=== PATIENT | female | born 1955 | race Caucasian/White ===

== ENCOUNTER → 2016-12-17 | Outpatient (CLI) | payer BC, MEDICARE ==
[~2016-12-17] MED LIST: ATEN50TA PO; CYCL1TAB29 PO; DIAZ5 PO; FLEC1.3D5 T-DERMAL; HYDR50TA3 PO; LEVO1CAP PO; LORA1TAB12 PO; META1TAB19 PO; OXYM10TA5 PO; OXYMTAB2 PO; SUVO1TAB4 PO; ZETI10TA5 PO
[2016-12-17 11:51] LABS: BACTERIA, URINE MANY /hpf; BLOOD, URINE NEG (NEG); GLUCOSE,URINE NEG (NEG); KETONE, URINE NEG (NEG); NITRITE,URINE NEG (NEG); SQUAMOUS EPITHELIAL CELL URINE 2 /hpf (0-5); URINE COLOR YELLOW (YELLW/STRAW)
[2016-12-17 12:11] LABS: MEAN CELL VOLUME 96.6 FL (80.0-100.0); MEAN CORPUSCULAR HEMOGLOBIN 34.1 PG (27.0-34.0); MEAN CORPUSCULAR HGB CONC 35.3 % (32.0-36.0); PLATELET COUNT 180 TH/MM3 (150-450); RED BLOOD COUNT 4.35 MIL/MM3 (4.00-5.30); RED CELL DISTRIBUTION WIDTH 12.8 % (11.6-17.2); REVIEW FLAG FINAL; WHITE BLOOD COUNT 5.8 TH/MM3 (4.0-11.0)
--- NOTE | 2016-12-17 12:24 | RADRPT ---
EXAM DATE/TIME: 12/17/2016 12:12 [place] COMPARISON: No previous studies available for comparison. INDICATIONS : [facility] for pneumonia, pneumothorax or communicable disease. Pre op D&C. MEDICAL HISTORY : Hypertension. SURGICAL HISTORY : None. ENCOUNTER: Initial ACUITY: 1 day PAIN SCORE: 0/10 LOCATION: Bilateral chest FINDINGS: PA and lateral views of the chest demonstrate the lungs to be symmetrically aerated without evidence of mass, infiltrate or effusion. The cardiomediastinal contours are unremarkable. Osseous structure s are intact with mid cervical anterior cerebrals of fusion plate in place as well as upper thoracic probably T1-T2 anterior fusion. Right-sided marginal hypertrophic spurring in the lower thoracic spin e.. CONCLUSION: No acute disease. Ed Rico MD on December 17, 2016 at 12:22 Board Certified Radiologist. This report was verified electronically.
[2016-12-17 12:32] LABS: ANION GAP 7 MEQ/L (5-15); AST (GOT) 29 U/L (15-37); BICARBONATE 29.5 MEQ/L (21.0-32.0); BLOOD UREA NITROGEN 16 MG/DL (7-18); CHLORIDE 101 MEQ/L (98-107); GLOMERULAR FILTRATION RATE 70 ML/MIN (>89); GLUCOSE,FASTING 109 MG/DL (74-99); POTASSIUM 3.5 MEQ/L (3.5-5.1); SODIUM (NA) 137 MEQ/L (136-145)
[2016-12-17 12:33] LABS: ALT (GPT) 29 U/L (10-53)
[2016-12-17 12:35] LABS: ALKALINE PHOSPHATASE 99 U/L (45-117); TOTAL BILIRUBIN ADULT 0.5 MG/DL (0.2-1.0)
--- NOTE | 2016-12-17 15:56 | EKG ---
Date Performed: 12/17/2016 Time Performed: 11:03:14 PTAGE: 61 years EKG: Sinus rhythm POSSIBLE LEFT ATRIAL ENLARGEMENT LOW QRS VOLTAGE IN PRECORDIAL LEADS POSSIBLE INFERIOR MYOCARDIAL IN FARCTION, PROBABLY OLD BORDERLINE ECG NO PREVIOUS TRACING DOCTOR: Landon Wilde Interpretating Date/Time 12/17/2016 15:54:13
== END ==
LOC: CPRE 10:36
PROVIDERS: ATTEND Obstetrics & Gynecology
DX: Z01.812 Encounter for preprocedural laboratory examination (principal); Z01.810 Encounter for preprocedural cardiovascular examination; Z01.811 Encounter for preprocedural respiratory examination; R93.8 Abnormal findings on diagnostic imaging of other specified body structures
CPT/HCPCS: 36415; 71020; 80053; 81001; 85027; 93005

== ENCOUNTER → 2016-12-19 | Day surgery (SDC) | payer BC, MEDICARE ==
[~2016-12-19] VITALS: Ht 160 cm; Wt 80.2 kg
[~2016-12-19] MED LIST changes: +*morphine SULFATE 8 MG/ML PERIprocedure ONLY ONE; +ACETAMINOPHEN 1000 MG/100 ML 100 ML IV ONE; +ACETAMINOPHEN/HYDROcodone 325 MG/5 MG TAB PO PRN; +CHLORHEXIDINE GLUCONATE 2 % 1 PACK (2 CLOTHS) TOPICAL PRN; +DEXAMETHASONE SOD PHOS 4 MG/ML VIAL IV ONE; +DO NOT ADM ANY ANTICOAGULANT DRUGS PRN; +INSULIN HUMAN REGULAR 1,000 UNITS/10 ML VIAL SQ PRN; +KETOROLAC TROMETHAMINE 30 MG/ML (IVP) VIAL IV PUSH ONE; +LACTATED RINGER'S 1000 ML IV PRN; +LIDOCAINE HCL 1% PF 5 ML AMPULE OTHER ONE; +METOPROLOL TARTRATE 25 MG TAB PO PRN; +MIDAZOLAM HCL 2 MG/2 ML VIAL IV ONE; +ONDANSETRON HCL 4 MG/2 ML VIAL IV PUSH ONE; +ONDANSETRON HCL 4 MG/2 ML VIAL IV PUSH PRN; +PHENYLEPH/NS 1000 MCG/10 ML SYR IV ONE; +POVIDONE IODINE 5% (ANTISEPSIS KIT) 4 APPLICATIONS EACH NARE PRN; +PROPOFOL 200 MG/20 ML AMP IV ONE; +SODIUM CHLORID 0.9% 500 ML IV PRN; +ceFAZolin 1,000 MG/NS 100 ML IV ONE; +ceFAZolin INJ 1,000 MG VIAL ONE; +ePHEDrine/NS 25 MG/5 ML SYR IV ONE
--- NOTE | 2016-12-19 12:49 | MP ---
cc: Sylwia IRWIN MD DATE OF SURGERY 12/19/2016 PREOPERATIVE DIAGNOSIS 1. Postmenopausal bleeding 2. Thickened endometrium POSTOPERATIVE DIAGNOSIS Large endometrial polyp PROCEDURE Examination under anesthesia, dilation and curettage of the uterus and a hysteroscopic exam with a polypectomy. ANESTHESIA General SURGEON Nadine Irwin MD FINDINGS Examination under anesthesia, the vagina was clean. The cervix was clean and small without lesions. The uterus was normal size, shape and consistency and the adnexa was negative for masses. Hysteroscopic exam revealed a large fundal endometrial polyp extending down to the internal cervical os. It looks benign. The remainder the endometrium looked atrophic. COMPLICATIONS None COUNTS Correct ESTIMATED BLOOD LOSS Minimal CONDITION The patient tolerated the procedure well and went to the recovery room in good condition. PROCEDURE IN DETAIL The patient was taken to the operating room, identified by name band and verbally given a general anesthetic and prepped and draped in the usual sterile fashion for vaginal surgery. Examination under anesthesia was carried out and a speculum was placed into the vagina. The anterior lip of the cervix was grasped with single-tooth tenaculum. The cervix was serially dilated without difficulty and the hysteroscope inserted. A large endometrial polyp was seen and using the MyoSure device, the endometrial polyp was completely removed down to the base with excellent results. Post pictures were taken. At this point, she tolerated procedure well and went to the recovery room in good condition. MD JUAN PABLO Denny/TERESE /12:28 PM /12:35 PM
[2016-12-19 14:00] VITALS: BP 103/69; PULSE 79; RESP 18; TEMP 97.4; O2SAT 96
== END | disposition home or self-care (01) ==
LOC: HSDC 09:23
PROVIDERS: ATTEND Obstetrics & Gynecology
DX: N95.0 Postmenopausal bleeding (principal); N84.0 Polyp of corpus uteri; R93.8 Abnormal findings on diagnostic imaging of other specified body structures; I10 Essential (primary) hypertension; Z01.810 Encounter for preprocedural cardiovascular examination; Z01.818 Encounter for other preprocedural examination
CPT/HCPCS: 36415; 71020; 80053; 81001; 85027; 88305; 93005; J0131; J0690; J1100; J1885; J2250; J2270; J2370; J2405; J3010; J7120